=== PATIENT | male | born 1950 | race Caucasian/White ===

== ENCOUNTER 2016-11-14 12:10 | Emergency (ER) | payer OTHER ==
[~2016-11-14] VITALS: Ht 185.4 cm; Wt 101.6 kg
--- NOTE | 2016-11-14 12:32 | ED GI/GU/ABDOMINAL COMPLAINT ---
History of Present Illness General Chief Complaint: Male Genitourinary Problems Stated Complaint: URINARY RETENTION Source: patient, family Exam Limitations: no limitations Vital Signs & Intake/Output Vital Signs & Intake/Output Vital Signs Date Time Temp Pulse Resp B/P B/P Pulse O2 O2 Flow FiO2 Mean Ox Delivery Rate 11/14 1225 98.3 66 18 175/103 100 Room Air Allergies Coded Allergies: Sulfa (Sulfonamide Antibiotics) (UNKNOWN 11/14/16) Triage Note: C/O PAINFUL URINATION X 2 DAYS. SENT BY PMD. STATES HE HAS BEEN URINATING IN VERY SAMLL AMOUNTS. DENIES ABDOMINAL PAIN. Triage Nurses Notes Reviewed? yes HPI: Patient states that a day evening he began to notice that he was urinating more frequently however just very little was coming out. Patient states that the last time he urinated was approximately 2 AM. Since then he feels like he has to go but nothing is coming out. There are no fevers or chills. There is no nausea or vomiting. Patient denies any back pain. Patient states that he has a pressure sensation in his bladder. There are no aggravating or mitigating factors. There is no radiation. Patient rates as 6 out of 10. Past History Travel History Traveled to [place] past 21 day No Medical History Any Pertinent Medical History? none Neurological: NONE EENT: NONE Cardiovascular: NONE Respiratory: NONE Gastrointestinal: NONE Hepatic: NONE Renal: NONE Musculoskeletal: NONE Psychiatric: NONE Endocrine: NONE Surgical History Surgical History: non-contributory Psychosocial History What is your primary language Turkish Tobacco Use: Never used ETOH Use: occasional use Illicit Drug Use: denies illicit drug use Family History Hx Contributory? No Review of Systems Review of Systems Constitutional: Reports: no symptoms. Respiratory: Reports: no symptoms. Cardiovascular: Reports: no symptoms. GI: Reports: see HPI. Genitourinary: Reports: see HPI, hesitation. Neurological/Psychological: Reports: no symptoms. Immunologic/Allergic: Reports: no symptoms. Physical Exam Physical Exam General Appearance: well developed/nourished, alert, awake, anxious, moderate distress Eyes: Bilateral: PERRL, EOMI. Ears, Nose, Throat, Mouth: hearing grossly normal, moist mucous membrane Neck: normal inspection, supple, full range of motion Respiratory: normal breath sounds, chest non-tender, no respiratory distress, lungs clear Cardiovascular: regular rate/rhythm, normal peripheral pulses Gastrointestinal: normal bowel sounds, soft, non-tender, no organomegaly Back: normal inspection, normal range of motion, NO CVA TENDERNESS Neurologic/Psych: no motor/sensory deficits, awake, alert, oriented x 3, normal mood/affect Core Measures ACS in differential dx? No Severe Sepsis Present: No Septic Shock Present: No Progress Differential Diagnosis: urinary retention, UTI/pyelo Plan of Care: Orders Procedure Date/time Status Manzo, Insertion/Removal/Asses 11/14 1231 Active CULTURE,URINE 11/14 1231 Active URINALYSIS 11/14 1231 Complete Laboratory Tests 11/14/16 1257: Urine Color YEL, Urine Clarity CLEAR, Urine pH 6.0, Ur Specific [place] 1.020, Urine Protein NEG, Urine Ketones NEG, Urine Nitrite NEG, Urine Bilirubin NEG, Urine Urobilinogen 0.2, Ur Leukocyte Esterase NEG, Ur Microscopic SEDIMENT EXAMINED, Urine RBC 15-25 H, Urine WBC RARE, Ur Epithelial Cells RARE, Urine Hemoglobin LARGE H, Urine Glucose NEG Microbiology 11/14 1257 URINE ROUT: Urine Culture - RECD Initial ED EKG: none Departure Departure Disposition: HOME OR SELF CARE Condition: Stable Clinical Impression Primary Impression: Urinary retention Referrals: KATIE MATTHEWS MD Additional Instructions: KEEP CATHETER IN FOLLOW UP WITH DR. MATTHEWS RETURN FOR ANY CONCERNS Departure Forms: Customer Survey General Discharge Information
[2016-11-14 13:39] VITALS: BP 171/95
[2016-11-22] MEDS ORDERED: FLOMAX0.4 M1 PO (08:32)
== END 2016-11-14 13:41 ==
LOC: ERH 12:10
DX: R33.9 Retention of urine, unspecified (principal)
CPT/HCPCS: 81001; 87086

== ENCOUNTER → 2016-11-23 | Day surgery (SDC) | payer OTHER ==
[~2016-11-23] VITALS: Ht 185.4 cm; Wt 99.8 kg
[~2016-11-23] MED LIST: FLOMAX0.4 M1 PO
--- NOTE | 2016-11-23 14:12 | Operative Report ---
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 He was cystoscoped in the office and seen to have a large bladder stone and with spiculated. He was consented for cystolitholapaxy at the bladder stone with possible laser. Risks benefits and alternatives of surgery were given. Patient did state that he was feeling much better and voiding much better but did not say he passed at the bladder stone. Patient was taken to the operating room and placed on the operative table in the supine position. Timeout was performed and antibiotics were infused. T Orellana was administered. He was placed in the dorsal lithotomy position. Speculum taken in a sterile fashion. Cystoscopy was performed and the bladder was closely inspected. Unusually bladder stone was not able to be found initially. This was traveling as the bladder stone was quite large and seen in the office by myself and medical student and a staff. Patient did not state that he passed a bladder stone. The anatomy was within normal limits. Two tiny small stones were seen and these were sent to pathology. The bladder was again closely inspected as well as the prostatic urethra and the urethra and no stones were seen. The bladder was emptied and patient was cleaned of the Betadine solution. He tolerated procedure well. Findings: tiny bladder stones x2 and no large spiculated bladder stone Discharge Disposition: Same Day Admissions
== END ==
LOC: STS 01:44
DX: N21.0 Calculus in bladder (principal); N40.1 Benign prostatic hyperplasia with lower urinary tract symptoms; R35.0 Frequency of micturition
CPT/HCPCS: 82355; J0131; J0744; J2250